=== PATIENT | male | born 1945 | race Two or more races ===

== ENCOUNTER 2024-02-25 11:47 | Emergency (ER) | payer OTHER ==
[~2024-02-25] VITALS: Ht 177.8 cm; Wt 94.5 kg
--- NOTE | 2024-02-25 12:31 | DVH ---
CHEST RADIOGRAPH Indication: ro flu Technique: Single frontal view of the chest was obtained COMPARISON: None FINDINGS: Lines and Tubes: None Lungs: Mild congestion Pleura: No effusion. No pneumothorax. Cardiomediastinal contours: Cardiomegaly Bones: Unremarkable IMPRESSION: Mild congestion
[2024-02-25 12:42] VITALS: PULSE 60; RESP 15; O2SAT 94
[2024-02-25 13:09] LABS: Basophils # (auto) 0.1 10 ^3/uL (0-0.2); Basophils % (auto) 0.9 % (0.0-2.0); Eosinophils # (auto) 0.1 10 ^3/uL (0-0.8); Eosinophils % (auto) 0.8 % (0.0-7.0); Hematocrit 40.7 % (41.0-53.0); Hemoglobin 13.9 g/dL (13.5-17.5); Lymphocytes # (auto) 1.3 10 ^3/uL (0.4-5.4); Mean Corpuscular Hemoglobin 31.6 pg (28.0-32.0); Mean Corpuscular Hgb Conc. 34.2 g/dL (32.0-36.0); Mean Corpuscular Volume 92.5 fL (80.0-100.0); Monocytes # (auto) 1.3 10 ^3/uL (0-1.3); Monocytes % (auto) 15.5 % (0.0-12.0); Neutrophils # (auto) 5.7 10 ^3/uL (1.6-8.6); Neutrophils % (auto) 67.8 % (37.0-80.0); Nucleated Red Blood Cells % 0.1 %; Platelet Count (auto) 150 10^3/uL (140-450); Red Blood Cells 4.41 10^6/uL (4.5-5.90); Red Cell Distribution Width 14.8 % (11.8-14.3); White Blood Cell 8.5 10^3/uL (4.4-10.8)
[2024-02-25 13:18] LABS: Alanine Aminotransferase 29 U/L (7-40); Albumin 3.9 g/dL (3.2-4.8); Alkaline Phosphatase 96 U/L (46-116); Anion Gap 7 (5-15); Aspartate Aminotransferase 57 U/L (13-40); BUN/Creatinine Ratio 7.2 (10.0-20.0); Blood Urea Nitrogen 6 mg/dL (9-23); Calcium 9.4 mg/dL (8.7-10.4); Carbon Dioxide 26 mmol/L (20-31); Chloride 103 mmol/L (98-107); Glucose 166 mg/dL (74-106); Magnesium 1.5 mg/dL (1.6-2.6); Potassium 3.6 mmol/L (3.5-5.1); Sodium 136 mmol/L (136-145)
[2024-02-25 13:19] LABS: Bilirubin, Total 0.6 mg/dL (0.2-1.0); Total Protein 6.4 g/dL (5.7-8.2)
--- NOTE | 2024-02-25 13:26 | ED.PDOC ---
History of Present Illness HPI Comments 79 Y M PRECIOUS, presents to the ED with CC of generalized weakness. Patient states on returning from using the bathroom this morning his legs became weak, he collapsed to the floor, and was unable to get up. He denies any injury. Patient states he has been feeling weak for days with associated symptoms of fatigue and intermittent headaches. Patient denies pain, shortness of breath, cough, N/V/D, fever, or edema. Of note, patient was noted to be hypoxic down to the 80s on room air. Chief Complaint: General Weakness Time Seen by MD: 12:00 Reviewed Notes: Nurses Notes, Medications, Allergies Allergies: Coded Allergies: NO KNOWN ALLERGIES (Unverified , 02/25/24) Information Source: Patient, Emergency Med Personnel Mode of Arrival: EMS Severity: Moderate Timing: Hours Duration: Since onset Prehospital treatment: None Past Medical History PAST MEDICAL HISTORY: DM Past Medical History (Other): stage IV liver cancer, aortic aneurysm Surgical History: Denies all surgeries Family History Family History: Unknown Social History Smoker: Non-Smoker Alcohol: Denies ETOH Use Drugs: Denies Drug Use Lives In: Home Constitutional: reports: fatigue; denies: chills, diaphoresis, fever, malaise, sweats, weakness, others EENTM: denies: blurred vision, double vision, ear bleeding, ear discharge, ear drainage, ear pain, ear ringing, eye pain, eye redness, hearing loss, mouth pain, mouth swelling, nasal discharge, nose bleeding, nose congestion, nose pain, photophobia, tearing, throat pain, throat swelling, voice changes, others Respiratory: denies: cough, hemoptysis, orthopnea, SOB at rest, shortness of breath, SOB with excertion, stridor, wheezing, others Cardiovascular: denies: chest pain, dizzy spells, diaphoresis, Dyspnea on exertion, edema, irregular heart beat, left arm pain, lightheadedness, palpi tations, PND, syncope, others Gastrointestinal: denies: abdomen distended, abdominal pain, blood streaked bowels, constipated, diarrhea, dysphagia, difficulty swallowing, hematemesis, melena, nausea, poor appetite, poor fluid intake, rectal bleeding, rectal pain, vomiting, others Genitourinary: denies: burning, dysuria, flank pain, frequency, hematuria, incontinence, penile discharge, penile sore, pain, testicle pain, testicle swelling, urgency, others Neurological: reports: headache; denies: dizziness, fainting, left sided numbness, left sided weakness, numbness, paresthesia, pre-existing deficit, right sided numbness, right sided weakness, seizure, speech problems, tingling, tremors, weakness, others Musculoskeletal: denies: back pain, gout, joint pain, joint swelling, muscle pain, muscle stiffness, neck pain, others Integumetry: denies: bruises, change in color, change in hair/nails, dryness, laceration, lesions, lumps, rash, wounds, others Allergic/Immunocompromised: denies: Difficulty Healing, Frequent Infections, Hives, Itching, others Hematologic/Lymphatic: denies: anemia, blood clots, easy bleeding, easy bruising, swollen glands, others Endocrine: denies: excessive hunger, excessive sweating, excessive thirst, excessive urination, flushing, intolerance to cold, intolerance to heat, unexplained weight gain, unexplained weight loss, others Psychiatric: denies: anxiety, bipolar disorder, depression, hopeless, panic d isorder, schizophrenia, sleepless, suicidal, others All Other Systems: Reviewed and Negative Physical Exam General Appearance: No Apparent Distress, Obese HEENT: PERRL/EOMI, Other (Moist mucous membranes, face symmetric) Neck: Full Range of Motion, Normal Inspection Respiratory: Decreased Breath Sounds, No Accessory Muscle Use, No Respiratory Distress Cardiovascular: No Edema, No JVD, Regular Rate/Rhythm Breast Exam: Deferred Gastrointestinal: Non Tender, Soft Genitalia: Deferred Pelvic: Deferred Rectal: Deferred Extremities: Normal inspection, Normal range of motion, Non-tender, No pedal edema Neurologic: Alert (Oriented x4), Normal Affect, Normal Mood, Other (Motor strength 4/5 bilateral upper and lower extremities. Sensation grossly intact. No gross focal deficit.) Cerebellar Function: NOT DONE Reflexes: NOT DONE Skin: Dry, Normal Color, Warm Lymphatic: NOT DONE Was a procedure done? Was a procedure done?: No Differential Dx Considerations may include: CVA, TIA, electrolyte imbalance, hypovolemia, PE, infection, among others X-Ray, Labs, Meds, VS Vital Signs Date Time Temp Pulse Resp B/P (MAP) Pulse Ox O2 Delivery O2 Flow Rate FiO2 02/25/24 22:00 53 18 118/60 (79) 93 02/25/24 20:00 54 9 91/43 (59) 96 02/25/24 20:00 45 02/25/24 19:30 51 13 95 Nasal Cannula* 4 36 02/25/24 19:30 51 13 91/43 (59) 95 02/25/24 18:00 54 15 105/48 (67) 96 02/25/24 16:00 99.8 67 17 125/51 (75) 98 99.8 02/25/24 16:00 66 02/25/24 14:00 61 98 137/68 (91) 18 02/25/24 12:42 60 15 94 Nasal Cannula* 2 28 02/25/24 12:15 60 02/25/24 12:13 98.1 63 13 95/52 (66) 96 98.1 02/25/24 11:52 98.3 70 20 98/50 (66) 95 02/25/24 11:51 69 Lab Test 02/25/24 22:51 02/25/24 21:45 02/25/24 17:45 02/25/24 16:51 Range/Units Lactic Acid Level 1.9 0.4-2.0 mmol/L Ammonia < 10 L 11-32 umol/L Urine Color Yellow Yellow Urine Clarity Clear Clear Urine pH 7.0 5.0-9.0 Urine Specific [place] 1.015 1.001-1.035 Urine Protein Trace H Negative Urine Ketones Negative Negative Urine Blood Negative Negative /uL Urine Nitrite Negative Negative Urine Bilirubin Negative Negative Urine Urobilinogen Normal Negative mg/dL Urine Leukocyte Esterase Negative Negative /uL Urine RBC 1 0 - 3 /hpf Urine WBC <1 0 - 3 /hpf Urine Squamous Epithelial Cells None seen <5 /hpf Urine Bacteria None seen None Seen /hpf Urine Mucus Few None Seen Urine Glucose Normal Normal mg/dL Influenza Type A Antigen Negative Negative Influenza Type B Antigen Negative Negative SARS-CoV-2 Antigen (Rapid) Negative NEGATIVE Test 02/25/24 13:51 02/25/24 12:46 Range/Units POC Glucose 157 H 70-106 mg/dl White Blood Count 8.5 4.4-10.8 10^3/uL Red Blood Count 4.41 L 4.5-5.90 10^6/uL Hemoglobin 13.9 13.5-17.5 g/dL Hematocrit 40.7 L 41.0-53.0 % Mean Corpuscular Volume 92.5 80.0-100.0 fL Mean Corpuscular Hemoglobin 31.6 28.0-32.0 pg Mean Corpuscular Hemoglobin Concent 34.2 32.0-36.0 g/dL Red Cell Distribution Width 14.8 H 11.8-14.3 % Platelet Count 150 140-450 10^3/uL Mean Platelet Volume 9.5 6.9-10.8 fL Neutrophils (%) (Auto) 67.8 37.0-80.0 % Lymphocytes (%) (Auto) 15.0 10.0-50.0 % Monocytes (%) (Auto) 15.5 H 0.0-12.0 % Eosinophils (%) (Auto) 0.8 0.0-7.0 % Basophils (%) (Auto) 0.9 0.0-2.0 % Neutrophils # (Auto) 5.7 1.6-8.6 10 ^3/uL Lymphocytes # (Auto) 1.3 0.4-5.4 10 ^3/uL Monocytes # (Auto) 1.3 0-1.3 10 ^3/uL Eosinophils # (Auto) 0.1 0-0.8 10 ^3/uL Basophils # (Auto) 0.1 0-0.2 10 ^3/uL Nucleated Red Blood Cells 0.1 % D-Dimer, Quantitative 0.95 H 0.0-0.49 mg/L FEU Sodium Level 136 136-145 mmol/L Potassium Level 3.6 3.5-5.1 mmol/L Chloride Level 103 98-107 mmol/L Carbon Dioxide Level 26 20-31 mmol/L Anion Gap 7 5-15 Blood Urea Nitrogen 6 L 9-23 mg/dL Creatinine 0.83 0.700-1.30 mg/dL Glomerular Filtration Rate Calc 90 >90 mL/min BUN/Creatinine Ratio 7.2 L 10.0-20.0 Serum Glucose 166 H 74-106 mg/dL Calcium Level 9.4 8.7-10.4 mg/dL Magnesium Level 1.5 L 1.6-2.6 mg/dL Total Bilirubin 0.6 0.2-1.0 mg/dL Aspartate Amino Transferase (AST) 57 H 13-40 U/L Alanine Aminotransferase (ALT) 29 7-40 U/L Alkaline Phosphatase 96 46-116 U/L Troponin I High Sensitivity 17 </=54 ng/L B-Type Natriuretic Peptide 384.37 0-100 pg/mL Total Protein 6.4 5.7-8.2 g/dL Albumin 3.9 3.2-4.8 g/dL Current Medications Medications (Trade) Dose Ordered Sig/Christina Route Start Time Stop Time Status Last Admin Ceftriaxone Sodium 50 ml @ 100 mls/hr ONCE ONCE IV 02/25/24 22:15 02/25/24 22:44 DC 02/25/24 22:46 Azithromycin 250 ml @ 125 mls/hr ONCE ONCE IV 02/25/24 22:15 02/26/24 00:14 02/25/24 22:45 Sodium Chloride 250 ml @ 1,000 mls/hr Q15M ONCE IV 02/25/24 22:15 02/25/24 22:29 DC 02/25/24 22:45 [place] [id number] Ph: [phone] DIAGNOSTIC IMAGING Diagnostic Imaging Report : [id number] Signed PATIENT: JANEL MIRANDA ACCT: [id number] UNIT: [id number] : 1945 LOC: ER ROOM / BED: / AGE / SEX: 79 / M ADM STATUS: REG ER SERVICE 1211 ORDERING PHYSICIAN: ANT MALAVE MD PROCEDURE(s): CXRP - CHEST PORTABLE REASON: ro flu ORDER NUMBER(s): [id number], ACCESSION NUMBER(s): [id number] CHEST RADIOGRAPH Indication: ro flu Technique: Single frontal view of the chest was obtained COMPARISON: None FINDINGS: Lines and Tubes: None Lungs: Mild congestion Pleura: No effusion. No pneumothorax. Cardiomediastinal contours: Cardiomegaly Bones: Unremarkable IMPRESSION: Mild congestion ATED BY: TJ RAMIREZ MD DICTATED DATE/TIME: 02/25/241228 SIGNED BY: TJ RAMIREZ MD SIGNED DATE/TIME: 02/25/241228 CC: [place] [id number] Ph: [phone] DIAGNOSTIC IMAGING Diagnostic Imaging Report : [id number] Signed PATIENT: JANEL MIRANDA ACCT: [id number] UNIT: [id number] : 1945 LOC: ER ROOM / BED: / AGE / SEX: 79 / M ADM STATUS: REG ER SERVICE 1313 ORDERING PHYSICIAN: ANT MALAVE MD PROCEDURE(s): HWOCT - HEAD WITHOUT CONTRAST REASON: BLE weak ORDER NUMBER(s): [id number], ACCESSION NUMBER(s): [id number] EXAM: CT HEAD WITHOUT CONTRAST INDICATION: BLE weak TECHNIQUE: CT of the head without intravenous contrast. Radiation Dose Information: CT Dose: CTDI volume is 52.39 mGy. Dose-length product is 863.90 mGy*cm The dose indicators for CT are the volume Computed Tomography (CT) Dose Index (CTDIvol) and the Dose Length Product (DLP), and are measured in units of mGy and mGy-cm, respectively. These indicators are not patient dose, but values generated from the CT scanner acquisition factors. The report includes radiation exposure data for exposures received during this examination. COMPARISON: None FINDINGS: There is no evidence of acute intracranial hemorrhage, extra-axial collection, mass effect, midline shift, herniation or hydrocephalus. The ventricles, sulci and cisterns are age appropriate. The howe-white differentiation is intact. Patchy periventricular and subcortical white matter hypoattenuation is nonspecific but may be related to small vessel ischemic disease. The visualized paranasal sinuses and mastoid air cells are clear. The surrounding soft tissues and osseous structures are unremarkable. IMPRESSION: 1. No CT evidence of acute intracranial abnormality. HS:Y ATED BY: ZEYNEP SALAZAR DO DICTATED DATE/TIME: 02/25/24 1343 SIGNED BY: ZEYNEP SALAZAR DO SIGNED DATE/TIME: 02/25/24 134 CC: X-Ray, Labs, Meds, VS Comment 79-year-old male with a history of stage IV liver CA, diabetes and aortic aneurysm presenting with generalized weakness and collapse. Vitals remarkable for initial BP 98/50, oxygen saturation 80% on room air Exam remarkable for diminished breath sounds at bilateral lung bases, 4/5 motor strength all extremities Rhythm strip independently interpreted by me: Sinus rhythm, rate 70, no ectopy. Head CT unremarkable Chest x-ray mild congestion CT angio chest IMPRESSION: 1. No pulmonary embolism. 2. Scattered vague ground-glass opacities in the right lower lobe may reflect atelectasis or mild pneumonia. CBC and CMP unremarkable for any abnormality of acute significance, BNP 384.37, troponin negative, D-dimer elevated at 0.95 Patient treated with the following in the ED: Supplemental oxygen via nasal cannula at 4 L, improving oxygen saturation to 96%. Rocephin 1 g IV, Zithromax 500 mg IV, 250 cc 0.9 normal saline IV bolus On re-evaluation, patient resting comfortably with stable vitals. Oxygen saturation 92% on 2 L nasal cannula. Plan is to admit/transfer the patient for IV antibiotics and respiratory support as needed. Case discussed with [facility]. They will arrange for transfer. Authorization [id number] Time of 1ST Reevaluation: 12:30 Reevaluation 1ST: Unchanged Time of 2ND Reevaluation: 22:31 Reevaluation 2ND: Improved Patient Education/Counseling: Diagnosis, Treatment Family Education/Counseling: No Family Present Departure 1 Departure Time of Disposition: 22:17 Impression: Primary Impression: Generalized weakness Additional Impressions: Pneumonia Qualified Codes: J18.9 - Pneumonia, unspecified organism Hypoxia Disposition: 02 SHORT TERM HOSPITAL Admit to: Tele Condition: Guarded Critical Care Note Critical Care Time?: No Stability Stability form required: No Heart Score Heart Score: Heart Score Response (Comments) Value History N/A 0 EKG N/A 0 Age N/A 0 Risk Factors N/A 0 Troponin N/A 0 Total 0 I personally scribed for ANT MALAVE MD ([email or web address]) on 02/25/24 at 13:26. Electronically submitted by Monique Guy [email or web address]). I personally scribed for ANT MALAVE MD ([email or web address]) on 02/25/24 at 13:30. Electronically submitted by Monique Guy ([email or web address]). I personally scribed for ANT MALAVE MD ([email or web address]) on 02/25/24 at 14:14. Electronically submitted by Monique Guy [email or web address]). I personally scribed for ANT MALAVE MD ([email or web address]) on 02/25/24 at 14:15. Electronically submitted by Monique Guy [email or web address]). ANT MALAVE MD Feb 25, 2024 13:26
--- NOTE | 2024-02-25 13:46 | DVH ---
EXAM: CT HEAD WITHOUT CONTRAST INDICATION: BLE weak TECHNIQUE: CT of the head without intravenous contrast. Radiation Dose Information: CT Dose: CTDI volume is 52.39 mGy. Dose-length product is 863.90 mGy*cm The dose indicators for CT are the volume Computed Tomography (CT) Dose Index (CTDIvol) and the Dose Length Product (DLP), and are measured in units of mGy and mGy-cm, respectively. These indicators are not patient dose, but values generated from the CT scanner acquisition factors. The report includes radiation exposure data for exposures received during this examination. COMPARISON: None FINDINGS: There is no evidence of acute intracranial hemorrhage, extra-axial collection, mass effect, midline s hift, herniation or hydrocephalus. The ventricles, sulci and cisterns are age appropriate. The howe-white differentiation is intact. Patchy periventricular and subcortical white matter hypoattenuation is nonspecific but may be related to small vessel ischemic disease. The visualized paranasal sinuses and mastoid air cells are clear. The surrounding soft tissues and osseous structures are unremarkable. IMPRESSION: 1. No CT evidence of acute intracranial abnormality. HS:Y
[2024-02-25 17:33] LABS: COVID19 ANTIGEN SOFIA FIA NEGATIVE (NEGATIVE); Rapid Influenza A Negative (Negative); Rapid Influenza B Negative (Negative)
[2024-02-25 18:41] LABS: Urine Bacteria None Seen /hpf (None Seen)
[2024-02-25 19:15] LABS: Urine Blood Negative /uL (Negative); Urine Clarity Clear (Clear); Urine Color Yellow (Yellow); Urine Mucus FEW (None Seen); Urine Protein, UAD TRACE (Negative); Urine Specific Gravity 1.015 (1.001-1.035); Urine Squamous Epithelial Cell None Seen /hpf (<5); Urine Urobilinogen Normal (Negative); Urine WBC <1 /hpf (0 - 3)
[2024-02-25 19:30] VITALS: PULSE 51; RESP 13; O2SAT 95
[2024-02-25] MEDS ORDERED: IOHEXOL 350 MG/ML 100ML IJ ONE (20:35)
--- NOTE | 2024-02-25 21:44 | DVH ---
CTA Chest with intravenous contrast INDICATION: hypoxia, hi dimer, r/o PE COMPARISON: None TECHNIQUE: Multidetector spiral CTA of the chest was performed of the chest with intravenous contrast . PULMONARY ANGIOGRAPHY PROTOCOL was utilized using a bolus-tracking technique centered on the main p ulmonary artery. Axial, coronal and sagittal multiplanar and MIP reformats were performed. Radiation Dose : 1. Chest: CTDI volume is 21 mGy. Dose-length product is 1742 mGy*cm The dose indicators for CT are the volume Computed Tomography (CT) Dose Index (CTDIvol) and the Dose Length Product (DLP), and are measured in units of mGy and mGy-cm, respectively. These indicators are not patient dose, but values generated from the CT scanner acquisition factors. The report includes radiation exposure data for exposures received during this examination. Findings: Pulmonary artery: No pulmonary embolism Lower neck: Normal thyroid. Lungs: Scattered vague ground-glass opacities in the right lower lobe may reflect atelectasis or mild pneumonia Heart/Vascular Structures: Normal heart size. No pericardial effusion. Lymph Nodes: No adenopathy Pleura: No pleural effusion or significant pneumothorax. Musculoskeletal: No acute osseous abnormality. Lumbar fixation hardware is partially visualized Soft tissues: Normal. Upper abdomen: Limited portions of the upper abdomen are unremarkable. IMPRESSION: 1. No pulmonary embolism. 2. Scattered vague ground-glass opacities in the right lower lobe may reflect atelectasis or mild pne umonia.
[2024-02-25] MEDS: SODIUM CHLORIDE 0.9% 250 ML IV ONE (22:45)
[2024-02-25] MEDS: AZITHROMYCIN 500MG/ 250ML 250 ML IV ONE (22:45)
[2024-02-25] MEDS: cefTRIAXone 1GM/50ML D5W 50 ML IV ONE (22:46)
[2024-02-26] MEDS: SODIUM CHLORIDE 0.9% 250 ML IV ONE (00:19)
[2024-02-26] MEDS: SODIUM CHLORIDE 0.9% 500 ML IV ONE (00:19)
[2024-02-26 02:33] VITALS: BP 120/54; PULSE 53; RESP 13; TEMP 98.3; O2SAT 90
--- NOTE | 2024-02-26 13:31 | ECG ---
[facility] Test Date: 2024-02-25 Test Time: 11:51:34 Pat Name: JANEL MIRANDA Department: er Room: Gender: M Domestic Violence Counselor: bobo : 1945 Requested By: ANT THOMPSON Order Number: [id number] Reading MD: Measurements Intervals [place] Rate: 69 P: 0 AK: 65 QRS: -73 QRSD: 139 T: 49 QT: 487 QTc: 522 Interpretive Statements Sinus rhythm Atrial premature complex Short AK interval RBBB and LAFB Please click the below link to view image of tracing.
== END 2024-02-26 02:48 | disposition short-term general hospital (02) ==
LOC: EDBD 11:47 → ER 11:47 → EDUNIT# 11:47 → ER 22:32
DX: R53.1 Weakness (principal); R09.02 Hypoxemia; J18.9 Pneumonia, unspecified organism; E11.9 Type 2 diabetes mellitus without complications; Z85.05 Personal history of malignant neoplasm of liver; Z20.822 Contact with and (suspected) exposure to COVID-19
CPT/HCPCS: 36415; 70450; 71045; 71275; 80053; 81001; 82140; 82962; 83605; 83735; 83880; 84484; 85025; 85379; 87040; 87426; 87804; 93005; 96361; 96365; 96366; 96368; 99285; J0456; J0696; J7040; J7050; Q9967